=== PATIENT | female | born 1995 | race Caucasian/White ===

== ENCOUNTER 2016-03-08 00:47 | Emergency (ER) | payer BC | END 2016-03-08 02:00 | disposition home or self-care (01) | LOC: ER 00:47 | DX: S93.492A Sprain of other ligament of left ankle, initial encounter (principal); W18.40XA Slipping, tripping and stumbling without falling, unspecified, initial encounter; Y92.009 Unspecified place in unspecified non-institutional (private) residence as the place of occurrence of the external cause; F17.210 Nicotine dependence, cigarettes, uncomplicated ==